=== PATIENT | male | born 2000 | race Caucasian/White ===

== ENCOUNTER 2020-08-31 18:19 | Emergency (ER) | payer SELFPAY ==
[2020-08-31 18:39] VITALS: BP 110/62; PULSE 69; TEMP 98.2; BMI 36.3
== END 2020-08-31 20:35 | disposition home or self-care (01) ==
LOC: JER 18:19 → JERFT 18:19
DX: M94.0 Chondrocostal junction syndrome [Tietze] (principal)
CPT/HCPCS: 71046-TC-FY; 93005; 93010; 99284-25